=== PATIENT | male | born 1990 | race Caucasian/White ===

== ENCOUNTER → 2022-01-30 | Day surgery (SDC) | payer MEDICARE, OTHER ==
[~2022-01-30] MED LIST: DEXAMETHASONE SOD PHOS 10 MG/1 ML VIAL ONE; DEXAMETHASONE SOD PHOS INJ 4 MG/ML SDV ONE; EPINEPHRINE HCL 1:1000 1ML 1 MG/ML AMP ONE; FISH OIL 1,001000 M1 PO; GLYCOPYRROLATE INJ 0.2 MG/ML VIAL ONE; LEVOTHYROXINE75 MCG PO; LIDOCAINE 1% W/EPINEPHRINE 20 ML VIAL ONE; LIDOCAINE HCL 2% LOCAL INJ 5 ML SDV VIAL INJ ONE; MAGNESIUM PO; NIACIN500 M2 PO; ONDANSETRON HCL INJ 2MG/ML 2ML 2 MG/ML VIAL ONE; POVIDONE IODINE 0.05% 0.05 % ML PO ONE; PROPOFOL IV EMULSION 10 MG/ML 20 ML VIAL ONE; ROCURONIUM BROMIDE 10 MG/ML 5ML VIAL IV ONE; SEVOFLURANE INHAL SOLN 250 ML PEN BTL ONE; VITAMIN B-121000 MCG PO; VITAMIN C1000 MG PO; VITAMIN D3125 MCG PO
[2022-01-30 09:45] VITALS: BP 108/60
== END | disposition home or self-care (01) ==
LOC: OR 06:27
PROVIDERS: ATTEND Otolaryngology Otolaryngology/Facial Plastic Surgery
DX: R22.0 Localized swelling, mass and lump, head (principal); E03.9 Hypothyroidism, unspecified
CPT/HCPCS: 38500; 88305; C1713; J1100; 88304; J0171; J2001; J2405